=== PATIENT | female | born 1995 | race American Indian/Alaskan Native ===

== ENCOUNTER 2016-10-23 15:35 | Emergency (ER) | payer OTHER ==
[2016-10-23 15:44] VITALS: BP 131/90
[2016-10-23] MEDS ORDERED: NORCO 5/325 PO ONE (18:19)
--- NOTE | 2016-10-23 18:29 | Emergency Department Report ---
Entered by BEENA ADAN, acting as scribe for ELEONORA PINZON NP. ED General Adult HPI - General Chief complaint: Pain General Stated complaint: Right side facial pain Time Seen by Provider: 10/23/16 17:52 Source: patient Mode of arrival: Ambulatory Limitations: No Limitations - History of Present Illness Initial comments: 20 year old female presents to the ED for evaluation of right sided facial pain for 3 days. Patient reports pain began while she was sitting down watching television at home. She reports pain is from top of head to chin and reports associated headache, eye pain, and dental pain. She reports she was seen by dentist yesterday and at [facility] last night for symptoms. Despite taking Tramadol, Ibuprofen, and Zyrtec, pain has persisted. Patient reports normal food and fluid intake. Denies nasal drainage, fever, head trauma, closed spaces, neck stiffness. LNMP 10/07/2016. Reports allergy to amoxicillin. Onset/Timin -: days(s) Location: head, face, eyes Consistency: constant Improves with: none Worsens with: none Associated Symptoms: headaches. denies: fever/chills, loss of appetite, nausea/ vomiting, other (dizziness, neck stiffness, nasal drainage) Treatments Prior to Arrival: NSAID (Ibuprofen, Tramadol), other (Zyrtec) - Related Data Previous Rx's Medication Instructions Recorded Last Taken Type Clindamycin [Clindamycin CAP] 300 mg PO Q8H #30 cap 10/23/16 Unknown Rx HYDROcodone/APAP 5-325 [Isabel 1 each PO Q6HR PRN #7 tablet 10/23/16 Unknown Rx 5/325] Allergies Allergy/AdvReac Type Severity Reaction Status Date / Time amoxicillin Allergy Hives Verified 10/23/16 15:44 ED Review of Systems Comment: All other systems reviewed and negative Constitutional: denies: chills, fever Eyes: eye pain (right) ENT: dental pain (right side), other (right facial pain). denies: ear pain, throat pain, congestion (nasal drainage) Respiratory: denies: cough, orthopnea, shortness of breath, SOB with exertion, SOB at rest, stridor, wheezing Cardiovascular: denies: chest pain, palpitations, dyspnea on exertion, orthopnea , edema, syncope, paroxysmal nocturnal dyspnea Skin: denies: rash Neurological: headache. denies: weakness, numbness, paresthesias, other ( dizziness) ED Past Medical Hx - Past Medical History Previous Medical History?: No - Surgical History Past Surgical History?: No - Social History Smoking Status: Never Smoker Substance Use Type: None - Medications Home Medications: Home Medications Medication Instructions Recorded Confirmed Last Taken Type Clindamycin [Clindamycin CAP] 300 mg PO Q8H #30 cap 10/23/16 Unknown Rx HYDROcodone/APAP 5-325 [Isabel 1 each PO Q6HR PRN #7 tablet 10/23/16 Unknown Rx 5/325] ED Physical Exam - General Limitations: No Limitations General appearance: alert, other (appears uncomfortable) - Head Head exam: Present: atraumatic, normocephalic - Eye Eye exam: Present: normal appearance, PERRL, EOMI - ENT ENT exam: Present: normal orophraynx, TM's normal bilaterally, normal external ear exam (bilaterally. No tenderness or pain.) - Expanded ENT Exam Expanded Ear exam: Present: normal external inspection. Absent: auricular hematoma, auricular trauma Mouth exam: Present: normal external inspection, tongue normal. Absent: drooling, trismus, muffled voice, tongue elevation, laceration Teeth exam: Present: other (1 cm swollen abscess in buccal mucosa on posterior lower right) Throat exam: Positive: normal inspection. Negative: tonsillar erythema, tonsillomegaly, tonsillar exudate, R peritonsillar mass, L peritonsillar mass - Neck Neck exam: Present: normal inspection, full ROM. Absent: meningismus, lymphadenopathy, thyromegaly - Respiratory Respiratory exam: Present: normal lung sounds bilaterally. Absent: respiratory distress, wheezes, rales, rhonchi - Cardiovascular Cardiovascular Exam: Present: regular rate, normal rhythm, normal heart sounds. Absent: tachycardia, systolic murmur, diastolic murmur, rubs, gallop - Neurological Exam Neurological exam: Present: alert, oriented X3 - Psychiatric Psychiatric exam: Present: normal affect, normal mood - Skin Skin exam: Present: warm, dry, intact, normal color. Absent: rash ED Course Vital Signs 10/23/16 15:41 Temperature 98.2 F Pulse Rate 69 Respiratory 16 Rate Blood Pressure 131/90 O2 Sat by Pulse 100 Oximetry - Reevaluation(s) Reevaluation #1: 10/23/16 18:21 pain medication ordered ED Medical Decision Making - Medical Decision Making During the course of ED, pain medication was ordered. Patient was sent home with a prescription for Clindamycin and Isabel, instructed to follow up with dentistry, she verbalized understanding - Differential Diagnosis Dental Pain, Tension Headache, Sinusitis ED Disposition Clinical Impression: Pain, dental Disposition: DISCHARGED TO HOME OR SELFCARE Is pt being admited?: No Does the pt Need Aspirin: No Condition: Stable Instructions: Dental Abscess (ED) Additional Instructions: Take medication as directed. Follow up with dentistry next week. Return back to the ED for worsening symptoms or concerns Prescriptions: Clindamycin [Clindamycin CAP] 300 mg PO Q8H #30 cap HYDROcodone/APAP 5-325 [Isabel 5/325] 1 each PO Q6HR PRN #7 tablet PRN Reason: Pain Referrals: PRIMARY CARE,MD [Primary Care Provider] - 3-5 Days [facility] [Outside] - 3-5 Days [facility] [Outside] - 3-5 Days Forms: Work/School Release Form(ED) Time of Disposition: 18:25 This documentation as recorded by the ANTIONETTE lemon REBEKAH,accurately reflects the service I personally performed and the decisions made by JEROMY daniels SABRENA D, DETECTIVE CHIEF.
== END 2016-10-23 18:35 | disposition home or self-care (01) ==
LOC: ED 15:35
DX: K08.89 Other specified disorders of teeth and supporting structures (principal); Z88.1 Allergy status to other antibiotic agents
CPT/HCPCS: 99282